=== PATIENT | male | born 1980 | race Caucasian/White ===

== ENCOUNTER 2017-09-02 02:07 | Emergency (ER) | payer SELFPAY ==
[2017-09-02] MEDS ORDERED: NORMAL SALINE 1000 ML 1,000 ML IV PRN ×4 (02:25→03:45)
--- NOTE | 2017-09-02 02:31 | ER Document Report ---
ED Syncope and Near Syncope - General Stated Complaint: NAUSEA SYNCOPE VOMITING Time Seen by Provider: 09/02/17 02:17 Mode of Arrival: Stretcher Information source: Patient, Parent, Emergency Med Personnel - HPI Patient complains to provider of: Fainting Episode witnessed (by whom): Yes - mother Symptoms prior to episode: Lightheaded, Palpitations Position/Activity at time of episode: Standing Quality of pain: No pain Context: Became unresponsive, Collapsed Injury location: None Notes: Patient is a 36-year-old male with a history of depression and anxiety, presents to the emergency room today via EMS after syncopal episode, patient states that he took his first dose of prazosin 5 mg this evening prior to bedtime, shortly thereafter he developed his symptoms, stating that he was not feeling quite right so he called to his mother for help, which came to his room patient was standing upright and passed out, he was unconscious for a few seconds and did not appear to be breathing according to mother, he was pale and shaking with possible seizure activity, patient reports that he stopped taking prazosin 2 or 3 months ago because he did not like the side effects, gave him palpitations and lightheadedness, but his doctor recently told him he should start taking it again, patient also takes lisinopril and Viibryd but takes these medications in the morning, prior to taking the prazosin he had no symptoms or concerns and had a fairly normal day otherwise Past Medical History - General Information source: Patient - Social History Smoking Status: Unknown if Ever Smoked Family History: Reviewed & Not Pertinent Review of Systems - Review of Systems Constitutional: No symptoms reported EENT: No symptoms reported Cardiovascular: See HPI Respiratory: No symptoms reported Gastrointestinal: No symptoms reported Genitourinary: No symptoms reported Male Genitourinary: No symptoms reported Musculoskeletal: No symptoms reported Skin: No symptoms reported Hematologic/Lymphatic: No symptoms reported Neurological/Psychological: No symptoms reported -: Yes All other systems reviewed and negative Physical Exam - Vital signs Vitals: Resp Pulse Ox 20 94 09/02/17 02:16 09/02/17 02:16 Interpretation: Hypotensive - General General appearance: Appears well, Alert - HEENT Head: Normocephalic, Atraumatic Eyes: Normal Pupils: PERRL - Respiratory Respiratory status: No respiratory distress Chest status: Nontender Breath sounds: Normal Chest palpation: Normal - Cardiovascular Rhythm: Regular Heart sounds: Normal auscultation Murmur: No - Abdominal Inspection: Normal, Obese Distension: No distension Bowel sounds: Normal Tenderness: Nontender Organomegaly: No organomegaly - Back Back: Normal, Nontender - Extremities General upper extremity: Normal inspection, Nontender, Normal color, Normal ROM , Normal temperature General lower extremity: Normal inspection, Nontender, Normal color, Normal ROM , Normal temperature, Normal weight bearing. No: Jd's sign - Neurological Neuro grossly intact: Yes Cognition: Normal Orientation: AAOx4 [place] Coma Scale Eye Opening: Spontaneous [place] Coma Scale Verbal: Oriented Ivor Coma Scale Motor: Obeys Commands [place] Coma Scale Total: 15 Speech: Normal Motor strength normal: LUE, RUE, LLE, RLE Sensory: Normal - Psychological Associated symptoms: Normal affect, Normal mood - Skin Skin Temperature: Warm Skin Moisture: Dry Skin Color: Normal Course - Re-evaluation Re-evalutation: 09/02/17 02:30 A call was placed to [facility], spoke with Lara, discussed patient's vital signs, symptoms, EKG findings, she recommends patient receive a fluid bolus, monitor for at least 2 hours, repeat EKG 09/02/17 05:14 Patient resting comfortably on stretcher, he reports feeling much better, he is actually sitting up in bed and has a blood pressure was 132 systolic, he denies any symptoms at present time, lab findings were discussed with patient at bedside which are unremarkable except for mild dehydration, he was given 4 L of IV fluids in the emergency room, patient was able to ambulate without difficulty or return of symptoms, symptoms likely related to addition of prazosin in the evening time, patient was advised to stop taking this medication and follow-up with his primary care provider or return if any additional concerns, patient acknowledges understanding and agreement with this plan 09/02/17 05:15 Repeat EKG is improved with a normal sinus rhythm at a rate of 93, he does continue to have a slightly prolonged QT interval which is now 3 and 96 with a QTC of 493, this is improved from earlier when the QT was 416 and the QTC was 504 - Vital Signs Vital signs: Temp Pulse Resp BP Pulse Ox 97.7 F 91 15 132/56 H 99 09/02/17 02:24 09/02/17 03:06 09/02/17 05:01 09/02/17 05:01 09/02/17 05:01 - Laboratory Result Diagrams: 09/02/17 02:20 09/02/17 02:20 Laboratory results interpreted by me: 09/02/17 09/02/17 02:20 02:20 WBC 11.9 H Hgb 12.8 L MCH 26.9 L Sodium 136.6 L Carbon Dioxide 19 L Creatinine 1.58 H Est GFR (Non-Af Amer) 50 L Glucose 274 H ALT 91 H Creatine Kinase 202 H - EKG Interpretation by Me EKG shows normal: Sinus rhythm Rate: Normal Rhythm: NSR Additional EKG results interpreted by me: 09/02/17 05:16 Prolonged QT interval with QT 416 and QTc 504 Discharge - Discharge Clinical Impression: Dehydration Medication side effects Qualifiers: Encounter type: initial encounter Qualified Code(s): T88.7XXA - Unspecified adverse effect of drug or medicament, initial encounter Syncope Qualifiers: Syncope type: unspecified Qualified Code(s): R55 - Syncope and collapse Condition: Stable Disposition: HOME, SELF-CARE Instructions: Syncopal Episode ([facility]), Dehydration ([facility]), Medication Side Effects ([facility]) Additional Instructions: Stop taking prazosin as it is likely the cause of your symptoms tonight. Follow -up with your primary care provider and mental health provider in the next 1-2 days. Return to the emergency room immediately if symptoms worsen or any additional concerns.
[2017-09-02 02:41] LABS: ABSOLUTE BASOPHILS # (AUTO) 0.1 10^3/uL (0.0-0.2); ABSOLUTE EOSINOPHILS # (AUTO) 0.2 10^3/uL (0.0-0.6); ABSOLUTE LYMPHOCYTES (AUTO) 2.6 10^3/uL (0.5-4.7); ABSOLUTE MONOCYTES (AUTO) 0.7 10^3/uL (0.1-1.4); ABSOLUTE NEUT (AUTO) 8.2 10^3/uL (1.7-8.2); BASOPHILS % (AUTO) 0.7 % (0-2); HEMATOCRIT 37.9 % (37.9-51.0); HEMOGLOBIN 12.8 g/dL (13.5-17.0); HGB HCT DIFFERENCE 0.5; LYMPHOCYTES % (AUTO) 22.1 % (13-45); MEAN CORPUSCULAR HEMOGLOBIN 26.9 pg (27.0-33.4); MEAN CORPUSCULAR HGB CONC 33.7 g/dL (32.0-36.0); MEAN CORPUSCULAR VOLUME 80 fl (80-97); MONOCYTES % (AUTO) 6.3 % (3-13); RED BLOOD COUNT 4.74 10^6/uL (4.35-5.55); RED CELL DISTRIBUTION WIDTH 13.9 % (11.5-14.0); SEGMENTED NEUTROPHILS % (AUTO) 68.9 % (42-78); WHITE BLOOD COUNT 11.9 10^3/uL (4.0-10.5)
[2017-09-02 02:55] LABS: ALANINE AMINOTRANSFERASE 91 U/L (21-72); ALBUMIN 4.1 g/dL (3.5-5.0); ALKALINE PHOSPHATASE 76 U/L (38-126); ANION GAP 15 (5-19); ASPARTATE AMINO TRANSFERASE 53 U/L (17-59); BILIRUBIN,DIRECT 0.3 mg/dL (0.0-0.4); BILIRUBIN,TOTAL 0.5 mg/dL (0.2-1.3); BLOOD UREA NITROGEN 19 mg/dL (7-20); CARBON DIOXIDE 19 mmol/L (22-30); CHLORIDE 103 mmol/L (98-107); CREATINE KINASE 202 U/L (55-170); CREATININE RESULT 1.58 mg/dL (0.52-1.25); GLUCOSE 274 mg/dL (75-110); POTASSIUM 4.1 mmol/L (3.6-5.0); SODIUM 136.6 mmol/L (137-145); TOTAL PROTEIN 6.6 g/dL (6.3-8.2)
[2017-09-02 03:06] LABS: TROPONIN I < 0.012 ng/mL
[2017-09-02 05:07] VITALS: BP 132/56
--- NOTE | 2017-09-02 10:59 | EKG REPORT ---
SEVERITY:- ABNORMAL ECG - SINUS RHYTHM PROLONGED QT INTERVAL : Confirmed by: Caitlyn Rooney MD 02-Sep-2017 10:58:03
--- NOTE | 2017-09-02 10:59 | EKG REPORT ---
SEVERITY:- ABNORMAL ECG - SINUS RHYTHM PROLONGED QT INTERVAL : Confirmed by: Caitlyn Rooney MD 02-Sep-2017 10:57:58
== END 2017-09-02 05:42 | disposition home or self-care (01) ==
LOC: ER 02:07
DX: E86.0 Dehydration (principal); T88.7XXA Unspecified adverse effect of drug or medicament, initial encounter; R55 Syncope and collapse; R11.2 Nausea with vomiting, unspecified; F32.9 Major depressive disorder, single episode, unspecified; Z79.899 Other long term (current) drug therapy
CPT/HCPCS: 93005; 99284; 96360; 36415; 82553; 82550; 85025; 80053; 84484; 93010; J7030